=== PATIENT | female | born 1960 | race Caucasian/White ===

== ENCOUNTER 2020-02-21 01:12 | Emergency (ER) | payer OTHER ==
[~2020-02-21] VITALS: Ht 149.9 cm; Wt 54.4 kg
[2020-02-21 01:15] VITALS: BP 119/62
--- NOTE | 2020-02-22 02:08 | NUR ---
LAB CALLED REGARDING COVID NEGATIVE RESULT
== END 2020-02-21 01:54 | disposition home or self-care (01) ==
LOC: ER 01:14
DX: Z03.818 Encounter for observation for suspected exposure to other biological agents ruled out (principal)
CPT/HCPCS: 99283; U0003

== ENCOUNTER 2020-03-20 02:10 | Emergency (ER) | payer OTHER ==
[~2020-03-20] VITALS: Ht 149.9 cm; Wt 54.4 kg
[2020-03-20 02:22] VITALS: BP 117/68
== END 2020-03-20 02:48 | disposition home or self-care (01) ==
LOC: ER 02:12
DX: Z11.59 Encounter for screening for other viral diseases (principal)
CPT/HCPCS: 99283; C9803; U0003

== ENCOUNTER 2020-03-27 00:11 | Emergency (ER) | payer OTHER ==
[~2020-03-27] VITALS: Ht 149.9 cm; Wt 54.4 kg
[2020-03-27 00:14] VITALS: BP 122/68
== END 2020-03-27 01:14 | disposition home or self-care (01) ==
LOC: ER 00:12
DX: Z03.818 Encounter for observation for suspected exposure to other biological agents ruled out (principal)
CPT/HCPCS: 99283; C9803; U0003

== ENCOUNTER 2020-04-05 02:36 | Emergency (ER) | payer OTHER ==
[~2020-04-05] VITALS: Ht 149.9 cm; Wt 54.4 kg
[2020-04-05 02:42] VITALS: BP 122/89
--- NOTE | 2020-04-05 02:54 | NUR ---
covid swab sent to lab
== END 2020-04-05 03:44 | disposition home or self-care (01) ==
LOC: EDBD → ER 02:36
DX: Z11.59 Encounter for screening for other viral diseases (principal)
CPT/HCPCS: 99283; C9803; U0003

== ENCOUNTER 2020-04-09 23:01 | Emergency (ER) | payer OTHER ==
[~2020-04-09] VITALS: Ht 154.9 cm; Wt 54.4 kg
[2020-04-09 23:09] VITALS: BP 141/85
--- NOTE | 2020-04-09 23:22 | NUR ---
MARGOTH SENT TO LAB
== END 2020-04-09 23:23 | disposition home or self-care (01) ==
LOC: EDBD → ER 23:03
DX: Z03.818 Encounter for observation for suspected exposure to other biological agents ruled out (principal)
CPT/HCPCS: 99283; C9803; U0003

== ENCOUNTER 2020-04-16 02:14 | Emergency (ER) | payer OTHER ==
[~2020-04-16] VITALS: Ht 154.9 cm; Wt 54.4 kg
[2020-04-16 02:18] VITALS: BP 128/75
== END 2020-04-16 02:40 | disposition home or self-care (01) ==
LOC: ER 02:14
DX: Z11.59 Encounter for screening for other viral diseases (principal)
CPT/HCPCS: 99283; C9803; U0003

== ENCOUNTER 2020-05-01 00:31 | Emergency (ER) | payer OTHER ==
[~2020-05-01] VITALS: Ht 154.9 cm; Wt 54.4 kg
[2020-05-01 00:33] VITALS: BP 132/64
== END 2020-05-01 00:57 | disposition home or self-care (01) ==
LOC: ER 00:32
DX: Z20.828 Contact with and (suspected) exposure to other viral communicable diseases (principal)
CPT/HCPCS: 99283; C9803; U0003

== ENCOUNTER 2020-05-14 01:32 | Emergency (ER) | payer OTHER ==
[~2020-05-14] VITALS: Ht 154.9 cm; Wt 54.4 kg
[2020-05-14 01:33] VITALS: BP 129/67
--- NOTE | 2020-05-14 01:50 | NUR ---
COVID SWAB DONE AND SENT TO LAB.
== END 2020-05-14 01:51 | disposition home or self-care (01) ==
LOC: ER 01:33
DX: Z03.818 Encounter for observation for suspected exposure to other biological agents ruled out (principal)
CPT/HCPCS: 99283; C9803; U0003

== ENCOUNTER 2020-05-21 23:37 | Emergency (ER) | payer OTHER ==
[~2020-05-21] VITALS: Ht 154.9 cm; Wt 54.4 kg
[2020-05-21 23:43] VITALS: BP 131/68
--- NOTE | 2020-05-21 23:57 | NUR ---
COVID SWAB COLLECTED AND SENT TO [facility]
== END 2020-05-21 23:58 | disposition home or self-care (01) ==
LOC: EDBD → ER 23:41
DX: Z20.828 Contact with and (suspected) exposure to other viral communicable diseases (principal)
CPT/HCPCS: 99283; C9803; U0003

== ENCOUNTER 2020-05-29 01:23 | Emergency (ER) | payer OTHER ==
[~2020-05-29] VITALS: Ht 154.9 cm; Wt 54.9 kg
[2020-05-29 01:26] VITALS: BP 127/75
--- NOTE | 2020-05-29 01:38 | NUR ---
COVID SWAB COLLECTED AND SENT TO LAB
== END 2020-05-29 01:38 | disposition home or self-care (01) ==
LOC: ER 01:24
DX: Z20.828 Contact with and (suspected) exposure to other viral communicable diseases (principal)
CPT/HCPCS: 99283; C9803; U0003

== ENCOUNTER 2020-06-11 00:21 | Emergency (ER) | payer OTHER | END 2020-06-11 00:46 | disposition home or self-care (01) | DX: Z20.828 Contact with and (suspected) exposure to other viral communicable diseases (principal) | CPT/HCPCS: 99283; C9803; U0003 ==

== ENCOUNTER 2020-06-19 01:33 | Emergency (ER) | payer OTHER ==
[~2020-06-19] VITALS: Ht 154.9 cm; Wt 54.9 kg
[2020-06-19 01:35] VITALS: BP 124/62
== END 2020-06-19 01:55 | disposition home or self-care (01) ==
LOC: EDBD → ER 01:34
DX: Z20.828 Contact with and (suspected) exposure to other viral communicable diseases (principal)
CPT/HCPCS: 99283; C9803; U0003

== ENCOUNTER 2020-06-25 00:21 | Emergency (ER) | payer OTHER ==
[~2020-06-25] VITALS: Ht 154.9 cm; Wt 54.9 kg
[2020-06-25 00:24] VITALS: BP 132/61
== END 2020-06-25 01:28 | disposition home or self-care (01) ==
LOC: EDBD → ER 00:27
DX: Z20.828 Contact with and (suspected) exposure to other viral communicable diseases (principal)
CPT/HCPCS: 99283; C9803; U0003

== ENCOUNTER 2020-07-03 01:10 | Emergency (ER) | payer OTHER ==
[~2020-07-03] VITALS: Ht 154.9 cm; Wt 54.9 kg
[2020-07-03 01:20] VITALS: BP 119/68
== END 2020-07-03 02:25 | disposition home or self-care (01) ==
LOC: ER 01:14
DX: Z20.828 Contact with and (suspected) exposure to other viral communicable diseases (principal)
CPT/HCPCS: 99283; C9803; U0003

== ENCOUNTER 2020-07-09 00:40 | Emergency (ER) | payer OTHER ==
[~2020-07-09] VITALS: Ht 154.9 cm; Wt 54.9 kg
[2020-07-09 00:42] VITALS: BP 132/67
--- NOTE | 2020-07-09 00:57 | NUR ---
covid swab sent to lab
== END 2020-07-09 00:58 | disposition home or self-care (01) ==
LOC: ER 00:41
DX: Z20.828 Contact with and (suspected) exposure to other viral communicable diseases (principal)
CPT/HCPCS: 99283; C9803; U0003

== ENCOUNTER 2020-07-16 00:33 | Emergency (ER) | payer OTHER ==
[~2020-07-16] VITALS: Ht 154.9 cm; Wt 54.9 kg
[2020-07-16 00:39] VITALS: BP 129/76
--- NOTE | 2020-07-16 00:46 | NUR ---
COVID SWAB COLLECTED AND SENT TO THE LAB.
== END 2020-07-16 00:46 | disposition home or self-care (01) ==
LOC: ER 00:34
DX: Z20.828 Contact with and (suspected) exposure to other viral communicable diseases (principal)
CPT/HCPCS: 99283; C9803; U0003

== ENCOUNTER 2020-07-22 22:56 | Emergency (ER) | payer OTHER ==
[~2020-07-22] VITALS: Ht 154.9 cm; Wt 54.9 kg
[2020-07-22 23:03] VITALS: BP 129/75
== END 2020-07-22 23:28 | disposition home or self-care (01) ==
LOC: ER 22:57
DX: Z20.828 Contact with and (suspected) exposure to other viral communicable diseases (principal)
CPT/HCPCS: 99283; C9803; U0003

== ENCOUNTER 2020-07-30 23:25 | Emergency (ER) | payer OTHER ==
[~2020-07-30] VITALS: Ht 154.9 cm; Wt 54.9 kg
[2020-07-30 23:28] VITALS: BP 128/75
== END 2020-07-31 00:04 | disposition home or self-care (01) ==
LOC: ER 23:27
DX: Z20.828 Contact with and (suspected) exposure to other viral communicable diseases (principal)
CPT/HCPCS: 99283; C9803; U0003

== ENCOUNTER 2020-08-06 01:11 | Emergency (ER) | payer OTHER ==
[~2020-08-06] VITALS: Ht 154.9 cm; Wt 54.9 kg
[2020-08-06 01:14] VITALS: BP 142/74
== END 2020-08-06 01:32 | disposition home or self-care (01) ==
LOC: ER 01:12
DX: Z20.828 Contact with and (suspected) exposure to other viral communicable diseases (principal)
CPT/HCPCS: 99283; C9803; U0003

== ENCOUNTER 2020-08-13 01:56 | Emergency (ER) | payer OTHER ==
[~2020-08-13] VITALS: Ht 154.9 cm; Wt 54.9 kg
[2020-08-13 01:56] VITALS: BP 128/67
== END 2020-08-13 02:32 | disposition home or self-care (01) ==
LOC: ER 01:57
DX: Z20.828 Contact with and (suspected) exposure to other viral communicable diseases (principal)
CPT/HCPCS: 99283; C9803; U0003

== ENCOUNTER 2020-08-20 00:16 | Emergency (ER) | payer OTHER ==
[~2020-08-20] VITALS: Ht 154.9 cm; Wt 54.9 kg
[2020-08-20 00:17] VITALS: BP 118/74
--- NOTE | 2020-08-20 00:18 | NUR ---
CALLED FOR COVID SWAB
== END 2020-08-20 01:07 | disposition home or self-care (01) ==
LOC: ER 00:17
DX: Z20.828 Contact with and (suspected) exposure to other viral communicable diseases (principal)
CPT/HCPCS: 99283; C9803; U0003

== ENCOUNTER 2020-08-27 00:53 | Emergency (ER) | payer OTHER ==
[~2020-08-27] VITALS: Ht 154.9 cm; Wt 54.9 kg
[2020-08-27 01:22] VITALS: BP 128/68
== END 2020-08-27 01:51 | disposition home or self-care (01) ==
LOC: ER 00:54
DX: Z20.828 Contact with and (suspected) exposure to other viral communicable diseases (principal)
CPT/HCPCS: 99283; C9803; U0003

== ENCOUNTER 2020-09-04 01:24 | Emergency (ER) | payer OTHER ==
[~2020-09-04] VITALS: Ht 154.9 cm; Wt 54.9 kg
[2020-09-04 01:28] VITALS: BP 132/68
== END 2020-09-04 01:43 | disposition home or self-care (01) ==
LOC: ER 01:26
DX: Z20.828 Contact with and (suspected) exposure to other viral communicable diseases (principal)
CPT/HCPCS: 99283; C9803; U0003

== ENCOUNTER 2020-09-09 01:21 | Emergency (ER) | payer OTHER ==
[~2020-09-09] VITALS: Ht 154.9 cm; Wt 54.9 kg
[2020-09-09 01:24] VITALS: BP 126/64
--- NOTE | 2020-09-09 01:46 | NUR ---
COVID SWAB SAMPLE COLLECTED AND SENT TO THE LAB.
== END 2020-09-09 01:52 | disposition home or self-care (01) ==
LOC: ER 01:24
DX: Z20.828 Contact with and (suspected) exposure to other viral communicable diseases (principal)
CPT/HCPCS: 99283; C9803; U0003

== ENCOUNTER 2020-09-11 02:56 | Emergency (ER) | payer OTHER ==
[~2020-09-11] VITALS: Ht 154.9 cm; Wt 54.9 kg
[2020-09-11 02:59] VITALS: BP 129/86
== END 2020-09-11 03:45 | disposition home or self-care (01) ==
LOC: ER 02:59
DX: Z20.828 Contact with and (suspected) exposure to other viral communicable diseases (principal)
CPT/HCPCS: 99283; C9803; U0003

== ENCOUNTER 2020-09-17 00:23 | Emergency (ER) | payer OTHER ==
[~2020-09-17] VITALS: Ht 160 cm; Wt 54.4 kg
[2020-09-17 00:36] VITALS: BP 132/68
== END 2020-09-17 00:47 | disposition home or self-care (01) ==
LOC: ER 00:27
DX: Z20.828 Contact with and (suspected) exposure to other viral communicable diseases (principal)
CPT/HCPCS: 99283; C9803; U0003

== ENCOUNTER 2020-09-21 03:26 | Emergency (ER) | payer OTHER ==
[~2020-09-21] VITALS: Ht 160 cm; Wt 54.4 kg
[2020-09-21 03:28] VITALS: BP 132/64
== END 2020-09-21 03:58 | disposition home or self-care (01) ==
LOC: ER 03:28
DX: Z20.828 Contact with and (suspected) exposure to other viral communicable diseases (principal)
CPT/HCPCS: 99283; C9803; U0003

== ENCOUNTER 2020-09-23 05:19 | Emergency (ER) | payer OTHER ==
[~2020-09-23] VITALS: Ht 160 cm; Wt 54.4 kg
[2020-09-23 05:23] VITALS: BP 129/86
== END 2020-09-23 05:46 | disposition home or self-care (01) ==
LOC: ER 05:20
DX: Z20.828 Contact with and (suspected) exposure to other viral communicable diseases (principal)
CPT/HCPCS: 99283; C9803; U0003

== ENCOUNTER 2020-09-25 01:12 | Emergency (ER) | payer OTHER ==
[~2020-09-25] VITALS: Ht 160 cm; Wt 54.4 kg
[2020-09-25 01:16] VITALS: BP 128/79
== END 2020-09-25 01:32 | disposition home or self-care (01) ==
LOC: ER 01:17
DX: Z20.822 Contact with and (suspected) exposure to COVID-19 (principal)
CPT/HCPCS: 99283; C9803; U0003

== ENCOUNTER 2020-10-01 02:40 | Emergency (ER) | payer OTHER ==
[~2020-10-01] VITALS: Ht 160 cm; Wt 54.4 kg
[2020-10-01 02:44] VITALS: BP 132/65
== END 2020-10-01 02:54 | disposition home or self-care (01) ==
LOC: ER 02:43
DX: Z20.822 Contact with and (suspected) exposure to COVID-19 (principal)
CPT/HCPCS: 99283; C9803; U0003

== ENCOUNTER 2020-10-02 01:25 | Emergency (ER) | payer OTHER ==
[~2020-10-02] VITALS: Ht 165.1 cm; Wt 54.4 kg
[2020-10-02 01:27] VITALS: BP 127/68
== END 2020-10-02 01:48 | disposition home or self-care (01) ==
LOC: ER 01:28
DX: Z20.822 Contact with and (suspected) exposure to COVID-19 (principal)
CPT/HCPCS: 99283; C9803; U0003

== ENCOUNTER 2020-10-06 01:56 | Emergency (ER) | payer OTHER ==
[~2020-10-06] VITALS: Ht 160 cm; Wt 54.4 kg
[2020-10-06 02:00] VITALS: BP 133/61
== END 2020-10-06 02:19 | disposition home or self-care (01) ==
LOC: ER 02:00
DX: Z20.822 Contact with and (suspected) exposure to COVID-19 (principal)
CPT/HCPCS: 99283; C9803; U0003

== ENCOUNTER 2020-10-08 00:59 | Emergency (ER) | payer OTHER ==
[~2020-10-08] VITALS: Ht 167.6 cm; Wt 73.0 kg
[2020-10-08 01:04] VITALS: BP 127/71
== END 2020-10-08 01:25 | disposition home or self-care (01) ==
LOC: ER 01:01
DX: Z20.822 Contact with and (suspected) exposure to COVID-19 (principal)
CPT/HCPCS: 99283; C9803; U0003

== ENCOUNTER 2020-10-15 00:58 | Emergency (ER) | payer OTHER ==
[~2020-10-15] VITALS: Ht 167.6 cm; Wt 73.0 kg
[2020-10-15 01:03] VITALS: BP 133/84
== END 2020-10-15 01:16 | disposition home or self-care (01) ==
LOC: ER 01:01
DX: Z20.822 Contact with and (suspected) exposure to COVID-19 (principal)
CPT/HCPCS: 99283; C9803; U0003

== ENCOUNTER 2020-10-16 00:59 | Emergency (ER) | payer OTHER ==
[~2020-10-16] VITALS: Ht 167.6 cm; Wt 69.9 kg
[2020-10-16 01:04] VITALS: BP 124/72
== END 2020-10-16 01:26 | disposition home or self-care (01) ==
LOC: ER 01:01
DX: Z20.822 Contact with and (suspected) exposure to COVID-19 (principal)
CPT/HCPCS: 99283; C9803; U0003

== ENCOUNTER 2020-10-21 02:36 | Emergency (ER) | payer OTHER ==
[~2020-10-21] VITALS: Ht 167.6 cm; Wt 69.9 kg
[2020-10-21 02:36] VITALS: BP 130/66
== END 2020-10-21 03:13 | disposition home or self-care (01) ==
LOC: ER 02:39
DX: Z20.822 Contact with and (suspected) exposure to COVID-19 (principal)
CPT/HCPCS: 99283; C9803; U0003

== ENCOUNTER 2020-10-22 01:57 | Emergency (ER) | payer OTHER ==
[~2020-10-22] VITALS: Ht 167.6 cm; Wt 73.0 kg
[2020-10-22 02:00] VITALS: BP 122/84
== END 2020-10-22 03:10 | disposition home or self-care (01) ==
LOC: ER 02:03
DX: Z20.822 Contact with and (suspected) exposure to COVID-19 (principal)
CPT/HCPCS: 99283; C9803; U0003

== ENCOUNTER 2020-10-29 00:38 | Emergency (ER) | payer OTHER ==
[~2020-10-29] VITALS: Ht 160 cm; Wt 54.4 kg
[2020-10-29 00:42] VITALS: BP 137/75
== END 2020-10-29 01:17 | disposition home or self-care (01) ==
LOC: ER 00:42
DX: Z20.822 Contact with and (suspected) exposure to COVID-19 (principal)
CPT/HCPCS: 99283; C9803; U0003

== ENCOUNTER 2020-10-30 00:13 | Emergency (ER) | payer OTHER ==
[~2020-10-30] VITALS: Ht 162.6 cm; Wt 54.4 kg
[2020-10-30 00:19] VITALS: BP 133/68
== END 2020-10-30 01:10 | disposition home or self-care (01) ==
LOC: ER 00:17
DX: Z20.822 Contact with and (suspected) exposure to COVID-19 (principal)
CPT/HCPCS: 99283; C9803; U0003

== ENCOUNTER 2020-11-04 01:36 | Emergency (ER) | payer OTHER ==
[~2020-11-04] VITALS: Ht 162.6 cm; Wt 54.4 kg
[2020-11-04 01:36] VITALS: BP 125/68
== END 2020-11-04 03:11 | disposition home or self-care (01) ==
LOC: ER 01:37
DX: Z20.822 Contact with and (suspected) exposure to COVID-19 (principal)
CPT/HCPCS: 99283; C9803; U0003

== ENCOUNTER 2020-11-06 00:29 | Emergency (ER) | payer OTHER ==
[~2020-11-06] VITALS: Ht 162.6 cm; Wt 54.4 kg
[2020-11-06 00:31] VITALS: BP 148/79
== END 2020-11-06 01:18 | disposition home or self-care (01) ==
LOC: ER 00:35
DX: Z20.822 Contact with and (suspected) exposure to COVID-19 (principal)
CPT/HCPCS: 99283; C9803; U0003

== ENCOUNTER 2020-11-12 01:30 | Emergency (ER) | payer OTHER ==
[~2020-11-12] VITALS: Ht 162.6 cm; Wt 54.4 kg
[2020-11-12 01:34] VITALS: BP 132/68
== END 2020-11-12 02:29 | disposition home or self-care (01) ==
LOC: ER 01:34
DX: Z20.822 Contact with and (suspected) exposure to COVID-19 (principal)
CPT/HCPCS: 99283; C9803; U0003

== ENCOUNTER 2020-11-19 01:04 | Emergency (ER) | payer OTHER ==
[~2020-11-19] VITALS: Ht 160 cm; Wt 59.0 kg
[2020-11-19 01:14] VITALS: BP 117/73
== END 2020-11-19 02:03 | disposition home or self-care (01) ==
LOC: ER 01:09
DX: Z20.822 Contact with and (suspected) exposure to COVID-19 (principal)
CPT/HCPCS: 99283; C9803; U0003

== ENCOUNTER 2020-11-26 01:15 | Emergency (ER) | payer OTHER ==
[~2020-11-26] VITALS: Ht 160 cm; Wt 59.0 kg
[2020-11-26 01:18] VITALS: BP 136/69
== END 2020-11-26 01:57 | disposition home or self-care (01) ==
LOC: ER 01:18
DX: Z20.822 Contact with and (suspected) exposure to COVID-19 (principal)
CPT/HCPCS: 99283; C9803; U0003

== ENCOUNTER 2020-12-02 01:06 | Emergency (ER) | payer OTHER ==
[~2020-12-02] VITALS: Ht 160 cm; Wt 59.0 kg
[2020-12-02 01:09] VITALS: BP 138/85
== END 2020-12-02 02:39 | disposition home or self-care (01) ==
LOC: ER 01:12
DX: Z20.822 Contact with and (suspected) exposure to COVID-19 (principal)
CPT/HCPCS: 99283; C9803; U0003

== ENCOUNTER 2020-12-10 01:26 | Emergency (ER) | payer OTHER ==
[~2020-12-10] VITALS: Ht 160 cm; Wt 54.4 kg
[2020-12-10 01:28] VITALS: BP 116/72
== END 2020-12-10 01:56 | disposition home or self-care (01) ==
LOC: ER 01:32
DX: Z20.822 Contact with and (suspected) exposure to COVID-19 (principal)
CPT/HCPCS: 99283; C9803; U0003

== ENCOUNTER 2020-12-16 02:28 | Emergency (ER) | payer OTHER ==
[~2020-12-16] VITALS: Ht 160 cm; Wt 54.4 kg
[2020-12-16 02:28] VITALS: BP 128/79
== END 2020-12-16 03:01 | disposition home or self-care (01) ==
LOC: ER 02:33
DX: Z20.822 Contact with and (suspected) exposure to COVID-19 (principal)
CPT/HCPCS: 99283; C9803; U0003

== ENCOUNTER 2021-01-28 02:35 | Emergency (ER) | payer OTHER ==
[~2021-01-28] VITALS: Ht 162.6 cm; Wt 77.1 kg
[2021-01-28 02:44] VITALS: BP 112/78
== END 2021-01-28 03:16 | disposition home or self-care (01) ==
LOC: ER 02:39
DX: Z20.822 Contact with and (suspected) exposure to COVID-19 (principal)
CPT/HCPCS: 99283; C9803; U0003

== ENCOUNTER 2021-02-03 00:32 | Emergency (ER) | payer OTHER ==
[~2021-02-03] VITALS: Ht 162.6 cm; Wt 77.1 kg
[2021-02-03 00:32] VITALS: BP 121/75
== END 2021-02-03 02:00 | disposition home or self-care (01) ==
LOC: ER 00:37
DX: Z20.822 Contact with and (suspected) exposure to COVID-19 (principal)
CPT/HCPCS: 99283; C9803; U0003

== ENCOUNTER 2021-02-10 02:45 | Emergency (ER) | payer OTHER ==
[~2021-02-10] VITALS: Ht 160 cm; Wt 62.6 kg
[2021-02-10 02:49] VITALS: BP 111/64
== END 2021-02-10 03:48 | disposition home or self-care (01) ==
LOC: ER 02:53
DX: Z20.822 Contact with and (suspected) exposure to COVID-19 (principal)
CPT/HCPCS: 99283; C9803; U0003

== ENCOUNTER 2021-02-17 03:23 | Emergency (ER) | payer OTHER ==
[~2021-02-17] VITALS: Ht 160 cm; Wt 62.6 kg
[2021-02-17 03:36] VITALS: BP 121/69
== END 2021-02-17 03:55 | disposition home or self-care (01) ==
LOC: ER 03:25
DX: Z20.822 Contact with and (suspected) exposure to COVID-19 (principal)
CPT/HCPCS: 99283; C9803; U0003

== ENCOUNTER 2021-02-25 00:07 | Emergency (ER) | payer OTHER ==
[~2021-02-25] VITALS: Ht 160 cm; Wt 62.6 kg
[2021-02-25 00:10] VITALS: BP 141/88
== END 2021-02-25 00:15 | disposition home or self-care (01) ==
LOC: ER 00:08
DX: Z20.822 Contact with and (suspected) exposure to COVID-19 (principal)
CPT/HCPCS: 99283; C9803; U0003

== ENCOUNTER 2021-03-03 02:24 | Emergency (ER) | payer OTHER ==
[~2021-03-03] VITALS: Ht 160 cm; Wt 62.6 kg
[2021-03-03 02:32] VITALS: BP 131/84
== END 2021-03-03 03:25 | disposition home or self-care (01) ==
LOC: ER 02:30
DX: Z20.822 Contact with and (suspected) exposure to COVID-19 (principal)
CPT/HCPCS: 99283; C9803; U0003

== ENCOUNTER 2021-03-11 00:37 | Emergency (ER) | payer OTHER ==
[~2021-03-11] VITALS: Ht 154.9 cm; Wt 53.5 kg
[2021-03-11 00:39] VITALS: BP 122/68
== END 2021-03-11 01:23 | disposition home or self-care (01) ==
LOC: ER 00:38
DX: Z20.822 Contact with and (suspected) exposure to COVID-19 (principal)
CPT/HCPCS: 99283; C9803; U0003

== ENCOUNTER 2021-06-02 22:47 | Emergency (ER) | payer OTHER ==
[~2021-06-02] VITALS: Ht 162.6 cm; Wt 73.0 kg
[2021-06-02 22:52] VITALS: BP 136/69
== END 2021-06-02 23:29 | disposition home or self-care (01) ==
LOC: ER 22:49
DX: Z20.822 Contact with and (suspected) exposure to COVID-19 (principal)
CPT/HCPCS: 99283; C9803; U0003

== ENCOUNTER 2021-06-09 02:00 | Emergency (ER) | payer OTHER ==
[~2021-06-09] VITALS: Ht 160 cm; Wt 60.3 kg
[2021-06-09 02:11] VITALS: BP 124/71
== END 2021-06-09 02:22 | disposition home or self-care (01) ==
LOC: ER 02:07
DX: Z20.822 Contact with and (suspected) exposure to COVID-19 (principal)
CPT/HCPCS: 99283; C9803; U0003

== ENCOUNTER 2022-03-29 21:13 | Emergency (ER) | payer OTHER ==
[~2022-03-29] VITALS: Ht 149.9 cm; Wt 54.4 kg
[2022-03-29 21:57] VITALS: BP 118/62
--- NOTE | 2022-03-29 22:05 | NUR ---
Patient discharged to home in stable condition. Written and verbal after care instructions given. Patient verbalizes understanding of instruction.
--- NOTE | 2022-03-29 22:30 | NUR ---
COVID PCR SWAB COLLECT AND SENT TO LAB
== END 2022-03-29 22:06 | disposition home or self-care (01) ==
LOC: ER 21:16
DX: Z20.822 Contact with and (suspected) exposure to COVID-19 (principal)
CPT/HCPCS: 99283; U0003; C9803